=== PATIENT | female | born 1955 | race Caucasian/White ===

== ENCOUNTER 2021-03-06 20:36 | Inpatient (IN) ==
[2021-03-06] MEDS ORDERED: SODIUM CHLORIDE 0.9% 1,000 ML IV STA (20:57)
[2021-03-06] MEDS ORDERED: ONDANSETRON INJ 2 MG/ML 2 ML VIAL IV STA (20:57)
[2021-03-06] MEDS ORDERED: MoRPHine SULFATE 4 MG/ML 1 ML CARP\\VIAL IV STA ×2 (20:57→22:39)
--- NOTE | 2021-03-06 21:06 | Emergency Department Note ---
History of Present Illness General Chief complaint: Abdominal Pain Stated complaint: ABD PAIN Time Seen by Provider: 03/06/21 20:42 History of Present Illness Maximum Pain Intensity: 10 55-year-old female who presents to the emergency department with complaint of central abdominal pain since approximately 10:30 AM this morning. The patient reports that the pain is constant with occasional sharp jabs in the left side of her abdomen. She denies any pain radiating into the back or chest. She reports a prior history of small bowel obstruction requiring a small bowel resection. She has not had any issues since that time. She reports that this feels similar. She has not had any nausea or vomiting. Since her surgery, she has had loose stools. She denies any abhishek diarrhea, blood in her stools or recent constipation. She rates her discomfort a 10 out of 10. Home Medications Medication Instructions Recorded Confirmed Type Levothyroxine (Synthroid Unknown 50 mcg PO DAILY #0 04/21/11 History Dose) [id number] C- 4 tab PO QPM #0 08/03/16 History (GLUCOSAMINE CHONDROITIN) Amlodipine Besylate 5 mg PO BID 30 Days #60 tab 08/11/16 Rx Allergies Allergy/AdvReac Type Severity Reaction Status Date / Time amoxicillin Allergy Unknown hives Unverified 04/21/11 06:57 clarithromycin Allergy Unknown swelling Unverified 04/21/11 06:57 Past Med/Surg History Medical History Hypertension Hypothyroidism DARIN on CPAP SBO (small bowel obstruction) Surgical History H/O colonoscopy H/O tubal ligation History of carpal tunnel surgery History of resection of small bowel Social History Smoking Status: Never smoker marital status: Current Living Situation: Spouse current occupational status: employed Feels Safe at Home: Yes Review of Systems 10 system review was performed and was negative except for pertinent positives and negatives as indicated in history of present illness Physical Exam Vital Signs Vital Signs - 24 hr 03/06/21 20:37 03/06/21 21:00 Temperature 36.3 C L Temperature Source Temporal Artery Scan Pulse Rate 87 Pulse Rate [Apical] 67 Pulse Rhythm [Apical] Regular Pulse Strength [Apical] Normal Respiratory Rate 24 24 Respiratory Effort / Characteristics Non-Labored Spontaneous Non-Labored Spontaneous Respiratory Depth Normal Normal Blood Pressure 179/120 H Blood Pressure [Left Arm] 155/77 H Blood Pressure Mean 139 Blood Pressure Mean [Left Arm] 103 Pulse Oximetry 98 99 Oxygen Delivery Method Room Air Room Air Sepsis Recent Fever Within 48 Hours No Sepsis New/Unexplained Change in Mental Status N/A Sepsis Action Taken by Nursing No Action Required CONSTITUTIONAL: Morbidly obese female in notable distress. HEENT: Normocephalic, atraumatic. No scleral icterus or conjunctival injection/pallor. NECK: Full active range of motion without discomfort. LYMPHATICS: No cervical chain adenopathy. RESPIRATORY: Clear to auscultation bilaterally with no wheezing, crackles, rhonchi or stridor. CARDIOVASCULAR: Regular rate and rhythm with no murmurs, rubs or gallops. GASTROINTESTINAL: Bowel sounds minimal in all quadrants. Abdomen protuberance is noted without fluid wave or ballottement. The patient has generalized central abdominal tenderness to palpation. Negative McBurney's point tenderness. Negative CVA tenderness. No rigidity, guarding or rebound. MUSCULOSKELETAL: Full range of motion of all joints without discomfort. INTEGUMENTARY: No rash or other significant dermatologic conditions noted. HEMATOLOGIC: No ecchymosis or petechiae. PSYCHIATRIC: Positive affect. NEUROLOGIC: No focal neurologic deficits noted. Course Course Patient history and physical exam were performed. Nurses notes were reviewed. Vital signs were reviewed, showing an elevated blood pressure of 179/120. The patient reports that she was unable to take her blood pressure medicine today because of the pain. Review of prior medical records was also performed, showing a small bowel obstruction with small bowel resection [place] [address] Harris. Patient is also noted to have prior history of a kidney stone in 2010; the patient reports that this pain feels different. IV access was established, and labs were drawn. The patient was hydrated with a liter normal saline, and administered IV morphine and Zofran for pain. An ECG was performed and was normal. 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 Review of labs shows a leukocytosis with left shift and without bandemia. BUN is mildly elevated with a normal creatinine. LFTs, lipase and troponin are normal. Lactate is elevated at 2.8. CT with IV contrast of the abdomen and pelvis was concerning for a partial versus early small bowel obstruction. Findings were discussed with Dr. Schrader, ED attending physician, who recommended hospitalist consultation for admission. Case was also discussed with the patient regarding her CT findings, and agrees with admission. The case was also discussed with Dr. Buck, [facility] hospitalist, who also agrees with admission, and will be evaluating the patient. An order was placed for additi onal IV morphine because of patient discomfort. She denied any further nausea. An order was also placed for COVID-19 testing, and repeat lactate. An order was also placed for an NG tube insertion with low intermittent suction. Please see the hospitalist service notes for further treatment and final disposition. Administered Medications Discontinued Medications Sodium Chloride (Nss 1000ml) 1,000 mls @ 999 mls/hr IV .Q1H1M STA Stop: 03/06/21 21:57 Last Infusion: 03/06/21 22:16 Dose: 0 mls/hr Documented by: [id number] Admin: 03/06/21 21:15 Dose: 999 mls/hr Documented by: [id number] Ioversol (Optiray 300 100ml) 84 ml IV ONCE ONE Stop: 03/06/21 22:03 Last Admin: 03/06/21 22:02 Dose: 84 ml Documented by: [id number] Morphine Sulfate (Morphine Sulfate 4 Mg/Ml 1 Ml Carp\Vial) 4 mg IV NOW STA Stop: 03/06/21 20:58 Last Admin: 03/06/21 21:15 Dose: 4 mg Documented by: [id number] Ondansetron HCl (Ondansetron Inj 2 Mg/Ml 2 Ml Vial) 4 mg IV NOW STA Stop: 03/06/21 20:58 Last Admin: 03/06/21 21:15 Dose: 4 mg Documented by: [id number] Medical Decision Making Medical Records Attestation: I reviewed the patient's medical records. Home Medications Current Medication List: was personally reviewed by me Laboratory Data Attestation: I reviewed the patient's lab results. Result diagrams: 03/06/21 Unknown 03/06/21 Unknown Lab Results 03/06/21 03/06/21 03/06/21 Range/Units Unknown Unknown Unknown WBC 11.98 H (4.8-10.8) K/uL RBC 5.23 (4.2-5.4) M/uL Hgb 15.3 (12.0-16.0) g/dL Hct 46.0 (37-47) % MCV 88.0 (80-100) fL MCH 29.3 (25-34) pg MCHC 33.3 (32-36) g/dL RDW Std Deviation 43.4 (36.4-46.3) fL RDW Coeff of Chitra 13.4 (11.5-14.5) % Plt Count 218 (130-400) K/uL MPV 10.8 H (7.4-10.4) fL Immature Gran % (Auto) 0.2 % Neut % (Auto) 61.5 % Lymph % (Auto) 28.8 % [place] % (Auto) 7.1 % Eos % (Auto) 2.1 % Baso % (Auto) 0.3 % Neut # (Auto) 7.37 H (1.4-6.5) K/uL Lymph # (Auto) 3.45 H (1.2-3.4) K/uL [place] # (Auto) 0.85 H (0.11-0.59) K/uL Eos # (Auto) 0.25 (0-0.5) K/uL Baso # (Auto) 0.04 (0-0.2) K/uL Immature Gran # (Auto) 0.02 (0.00-0.02) K/uL PT Cancelled INR Cancelled APTT Cancelled PTT Ratio Cancelled Sodium 139 (136-145) mmol/L Potassium 3.5 (3.5-5.1) mmol/L Chloride 101 (98-107) mmol/L Carbon Dioxide 29 (21-32) mmol/L Anion Gap 9.0 (3-11) BUN 21 H (7-18) mg/dl Creatinine 0.93 (0.6-1.2) mg/dl Est Cr Clr Drug Dosing 66.2 ml/min Est GFR ( Amer) 75.8 ml/min Est GFR (Non-Af Amer) 65.4 ml/min BUN/Creatinine Ratio 22.0 H (10-20) Glucose 169 H (70-99) mg/dl Lactate (0.4-2.0) mmol/L Calcium 10.3 H (8.5-10.1) mg/dl Total Bilirubin 0.6 (0.2-1) mg/dl AST 33 (15-37) U/L ALT 70 (12-78) U/L Alkaline Phosphatase 106 (45-117) U/L Troponin I < 0.015 (0-0.045) ng/ml Total Protein 8.9 H (6.4-8.2) gm/dl Albumin 4.4 (3.4-5.0) gm/dl Globulin 4.5 H (2.5-4.0) gm/dl Albumin/Globulin Ratio 1.0 (0.9-2) Lipase 85 (73-393) U/L 03/06/21 Range/Units Unknown WBC (4.8-10.8) K/uL RBC (4.2-5.4) M/uL Hgb (12.0-16.0) g/dL Hct (37-47) % MCV (80-100) fL MCH (25-34) pg MCHC (32-36) g/dL RDW Std Deviation (36.4-46.3) fL RDW Coeff of Chitra (11.5-14.5) % Plt Count (130-400) K/uL MPV (7.4-10.4) fL Immature Gran % (Auto) % Neut % (Auto) % Lymph % (Auto) % [place] % (Auto) % Eos % (Auto) % Baso % (Auto) % Neut # (Auto) (1.4-6.5) K/uL Lymph # (Auto) (1.2-3.4) K/uL [place] # (Auto) (0.11-0.59) K/uL Eos # (Auto) (0-0.5) K/uL Baso # (Auto) (0-0.2) K/uL Immature Gran # (Auto) (0.00-0.02) K/uL PT INR APTT PTT Ratio Sodium (136-145) mmol/L Potassium (3.5-5.1) mmol/L Chloride (98-107) mmol/L Carbon Dioxide (21-32) mmol/L Anion Gap (3-11) BUN (7-18) mg/dl Creatinine (0.6-1.2) mg/dl Est Cr Clr Drug Dosing ml/min Est GFR ( Amer) ml/min Est GFR (Non-Af Amer) ml/min BUN/Creatinine Ratio (10-20) Glucose (70-99) mg/dl Lactate 2.8 H* (0.4-2.0) mmol/L Calcium (8.5-10.1) mg/dl Total Bilirubin (0.2-1) mg/dl AST (15-37) U/L ALT (12-78) U/L Alkaline Phosphatase (45-117) U/L Troponin I (0-0.045) ng/ml Total Protein (6.4-8.2) gm/dl Albumin (3.4-5.0) gm/dl Globulin (2.5-4.0) gm/dl Albumin/Globulin Ratio (0.9-2) Lipase (73-393) U/L Imaging Data Attestation: I personally reviewed and interpreted this imaging study as follows: My Impression: My interpretation of a CT with IV contrast of the abdomen and pelvis is concerning for a partial small bowel obstruction. No diverticulitis, appendicitis or abdominal free air noted. [employer] report was reviewed, and is provided in the following section for reader convenience. Local radiologist report is pending. Radiologist's Impression: CT ABDOMEN & PELVIS With Contrast: Mildly dilated loops of small bowel with air-fluid levels in the lower central abdomen. There is slight tapering to normal caliber distally without suggestion of high-grade stricture (series 2, image 64). This appearance may represent a partial or very early small bowel obstruction. Fat-containing ventral hernia. Fascial defect measures 3.8 cm in width. Stable left renal cyst. Additional bilateral subcentimeter hypodensities in the kidneys too small to characterize further but are statistically likely to also represent simple cysts. Comparison made with 08/05/2016 CT abdomen/pelvis Radiologist: Colin Lake MD ECG Data Attestation: I personally reviewed and interpreted this ECG as follows: Indication: + abdominal pain Rate (beats per minute): 67 Rhythm: + normal sinus ECG Intervals/blocks: + Normal QRS ECG [place]: + Normal ECG ST segments: + Normal ST segments Comparison ECG Date: from (08/05/2016) Change: the following changes noted (Improved T wave appearance in anterolateral leads) Blood Pressure Blood Pressure Findings: Elevated blood pressure MDM Narrative Cardiac monitoring: An order was placed for continuous cardiac monitoring. The monitor shows a rate of 67 bpm with normal sinus rhythm. 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 Patient presents to the emergency department with complaint of abdominal pain since early this morning. Fortunately patient has not had any significant nausea or vomiting. CT imaging today is concerning for early small bowel obstruction versus partial small bowel obstruction. Patient does have an elevated lactate, however I do not suspect infection. The patient is afebrile and has a mild leukocytosis. Additional laboratory studies are not suggestive of pancreatitis, cholecystitis or hepatitis. The patient was unable to provide a urine sample to rule out UTI, however this was felt to be less likely. Patient does have prior history of small bowel obstruction with surgical resection. Hopefully the patient's symptoms will improve with NG tube insertion and observation. Impression & Plan Partial small bowel obstruction, Hypertension, History of resection of small bowel Discharge Plan Visit Data Chief Complaint: Abdominal Pain Stated Complaint: ABD PAIN ED Provider: Buddy Schrader ED Midlevel Provider: [place] Discharge Problem: Partial small bowel obstruction, Hypertension, History of resection of small bowel Forms Stand Alone Forms: [facility] [place] [employer] Prescriptions Prescriptions: No Action Levothyroxine (Synthroid Unknown Dose) tablet 50 mcg PO DAILY Qty: 0 RF: 0 [id number] C- (GLUCOSAMINE CHONDROITIN) 1 TAB tablet 4 tab PO QPM Qty: 0 RF: 0 Amlodipine Besylate 5 MG tablet 5 mg PO BID 30 Days Qty: 60 RF: 1
[2021-03-06 21:07] LABS: Basophils # (auto) 0.04 K/uL (0-0.2); Basophils % (auto) 0.3 %; Eosinophils # (auto) 0.25 K/uL (0-0.5); Eosinophils % (auto) 2.1 %; Hemoglobin 15.3 g/dL (12.0-16.0); Immature Granulocytes # (auto) 0.02 K/uL (0.00-0.02); Immature Granulocytes % (auto) 0.2 %; Lymphocytes # (auto) 3.45 K/uL (1.2-3.4); Lymphocytes % (auto) 28.8 %; Mean Corpuscular Hemoglobin 29.3 pg (25-34); Mean Corpuscular Hgb Conc 33.3 g/dL (32-36); Mean Platelet Volume 10.8 fL (7.4-10.4); Monocytes # (auto) 0.85 K/uL (0.11-0.59); Monocytes % (auto) 7.1 %; Neutrophils # (auto) 7.37 K/uL (1.4-6.5); Neutrophils % (auto) 61.5 %; Platelet Count 218 K/uL (130-400); RDW Coefficient of Variation 13.4 % (11.5-14.5); RDW Standard Deviation 43.4 fL (36.4-46.3); Red Blood Count 5.23 M/uL (4.2-5.4); White Blood Count 11.98 K/uL (4.8-10.8)
[2021-03-06 21:23] LABS: Alanine Aminotransferase 70 U/L (12-78); Albumin Level 4.4 gm/dl (3.4-5.0); Aspartate Aminotransferase 33 U/L (15-37); Blood Urea Nitrogen 21 mg/dl (7-18); Calcium 10.3 mg/dl (8.5-10.1); Carbon Dioxide 29 mmol/L (21-32); Chloride 101 mmol/L (98-107); Creatinine Clr Calc Pharmacy 66.2 ml/min; Est GFR (African American) 75.8 ml/min; Est GFR (Non-African American) 65.4 ml/min; Glucose 169 mg/dl (70-99); Lipase 85 U/L (73-393); Potassium 3.5 mmol/L (3.5-5.1); Sodium 139 mmol/L (136-145)
[2021-03-06 21:28] LABS: Alkaline Phosphatase 106 U/L (45-117); Bilirubin,Total 0.6 mg/dl (0.2-1); Globulin 4.5 gm/dl (2.5-4.0); Total Protein 8.9 gm/dl (6.4-8.2); Troponin I < 0.015 ng/ml (0-0.045)
[2021-03-06] MEDS ORDERED: OPTIRAY 300 100mL IV ONE (22:02)
[2021-03-06] MEDS: MoRPHine SULFATE 4 MG/ML 1 ML CARP\\VIAL IV PRN (22:42)
[2021-03-07] MEDS: MoRPHine SULFATE 4 MG/ML 1 ML CARP\\VIAL IV PRN (00:31)
[2021-03-07] MEDS ORDERED: ONDANSETRON INJ 2 MG/ML 2 ML VIAL IV PRN (01:23)
[2021-03-07] MEDS ORDERED: GLUCOSE 10 TAB/TUBE PO PRN (01:45)
[2021-03-07] MEDS ORDERED: GLUCOSE 40% GEL 15 GM TUBE PO PRN (01:45)
[2021-03-07] MEDS ORDERED: DEXTROSE 50% 50 ML SYRINGE IV PRN (01:45)
[2021-03-07] MEDS ORDERED: CARBOHYDRATES FOR HYPOGLYCEMIA PO PRN (01:45)
[2021-03-07] MEDS ORDERED: GLUCAGON FOR INJ 1 MG VIAL IM PRN (01:45)
[2021-03-07] MEDS: SODIUM CHLORIDE 0.9% 1,000 ML IV SCH ×2 (01:57→08:36)
--- NOTE | 2021-03-07 01:58 | History and Physical Report ---
DATE OF ADMISSION: 03/07/2021 CHIEF COMPLAINT: Abdominal pain. HISTORY OF PRESENT ILLNESS: A 65-year-old male with past medical history significant for type 2 diabetes, hypothyroidism, mild obstructive sleep apnea, hypertension, benign neoplasm of colon, morbid obesity, primary osteoarthritis of both knees, mild depression, SEVERINO inhibitor intolerance, presents with abdominal pain. The patient says in the morning since 10.30 she has abdominal pain, severe pain. She had 3 bowel movements in the morning. Since then she is not moving any bowels. Not passing any flatus. No nausea, no vomiting, no cough, no fever, no chills, no chest pain, no headache, no blurred vision, no earache, no runny nose, no sore throat. Normal bladder movements. Otherwise, ambulates okay. Lives with her . She had a bowel obstruction in July 2016, she had small polyps resected because of bowel obstruction. ALLERGIES: SEVERINO INHIBITORS, AMOXICILLIN, ANGIOTENSIN RECEPTOR BLOCKERS, CLARITHROMYCIN. PAST MEDICAL HISTORY: As mentioned above. PAST SURGICAL HISTORY: Breast lesion, carpal tunnel surgery, colonoscopy, fibroid cyst in the breast, infected ovarian tube, tubal ligation. MEDICATIONS: The patient is on hydrochlorothiazide 25 mg p.o. daily, levothyroxine 75 mcg p.o. daily, metformin 1000 mg p.o. b.i.d., metoprolol succinate 25 mg p.o. q.p.m. FAMILY HISTORY: Significant for father had esophageal cancer, heart disorder, hypertension. Mother has thyroid disorder, hypertension. Sister has thyroid disorder. SOCIAL HISTORY: . No smoking, no alcohol, no drug use. REVIEW OF SYMPTOMS: As per HPI. Rest of review of systems negative. PHYSICAL EXAMINATION: GENERAL: The patient is of moderate build, not in acute distress. VITAL SIGNS: Temperature 36.3, pulse 67, respiratory rate 24, blood pressure 155/77, oxygen 99% on room air. HEENT: Pupils equal, round, reactive to light. NECK: No JVD. No neck masses. CARDIOVASCULAR: S1, S2 heard, regular rate and rhythm, no murmur, no gallop. RESPIRATORY SYSTEM: Normal AP diameter. No accessory muscle use. No wheezing, no crackles. ABDOMEN: Soft, bowel sounds very sluggish, diffuse abdominal tenderness. Mild guarding, no rigidity, no rebound tenderness. CENTRAL NERVOUS SYSTEM: Cranial nerves II-XII grossly intact. Nonfocal. EXTREMITIES: No edema, no erythema. LABORATORY DATA: WBC 11.9, hemoglobin 15.3, hematocrit 46, platelets 218. Sodium 139, potassium 3.5, chloride 101, bicarbonate 29, BUN 21, creatinine 0.9, serum glucose 169, lactate 2.8, calcium 10.3, total bilirubin 0.6, AST 33, ALT 70, alkaline phosphatase 106. Troponin I less than 0.015. SARS-CoV-2 PCR negative. IMAGING: CT of abdomen and pelvis with IV contrast, mildly dilated loops of small bowel with air fluid levels in the lower central abdomen. There is slight tapering to normal caliber distal without suggestion of high-grade stricture. This appeared to represent a partial or very early small bowel obstruction. EKG: Normal sinus rhythm 67. No acute ST changes seen. ASSESSMENT AND PLAN: A 65-year-old female who presents with abdominal pain, found to have small bowel obstruction. 1. Abdominal pain, recurrent small bowel obstruction, history of small bowel resection in July 2016 as per the patient. Currently no nausea, vomiting. We will continue with n.p.o., IV fluids, IV antiemetics, IV pain medications and consult surgery in a.m. 2. Mild elevation of lactic acid, but CAT scan with contrast not showing any high-grade obstruction. We will follow the repeat lactic acid.Normalized repeat lactic acid. 3. Diabetes. Hold metformin. Start insulin sliding scale. 4. Hypertension. Hold hydrochlorothiazide. Continue metoprolol succinate. We will monitor the blood pressure. 5. History of hypothyroidism, hold Synthroid for now. Restart when able to take p.o. 6. Deep venous thrombosis prophylaxis, sequential compression devices. DISPOSITION: Monitor in the medical floor. Expect to discharge home and follow with family doctor. Level 1 full code. MTDD
[2021-03-07] MEDS: HYDROmorphone INJ 0.5 MG/0.5 ML SYR IV PRN ×2 (02:04→05:18)
[2021-03-07] MEDS: INSULIN ASPART 100 UNITS/ML 3 ML PEN SC SCH ×4 (06:01→23:55)
[2021-03-07 06:02] LABS: Appearance Urine Clear (Clear); Bilirubin Urine Negative (Negative); Blood Urine Negative (Negative); Color Urine Yellow; Glucose Urine UA Negative (Negative); Ketones Urine Negative (Negative); Leukocyte Esterase Urine Negative (Negative); Nitrite Urine Negative (Negative); Protein Urine Negative (Negative); Specific Gravity Urine > 1.045 (1.000-1.030); Urobilinogen Urine Negative (Negative)
--- NOTE | 2021-03-07 07:54 | CT Scan Report ---
CT SCAN OF THE ABDOMEN AND PELVIS WITH IV CONTRAST CLINICAL HISTORY: Generalized abdominal pain. COMPARISON STUDY: Abdominal CT dated 08/05/2016. TECHNIQUE: Following the IV administration of 84 cc of Optiray 300, CT scan of the abdomen and pelvi s is performed from the lung bases to the proximal femora. Images are reviewed in the axial, sagittal , and coronal planes. IV contrast was administered without complication. A dose lowering technique wa s utilized adhering to the principles of ALARA. CT DOSE: 927.84 mGycm FINDINGS: Lung bases: The heart is normal in size and without pericardial effusion. The lung bases are clear no ting dependent atelectasis. There is a tiny hiatal hernia. Liver: The contrast-enhanced liver is normal in size and heterogeneous in attenuation. Nodularity of the surface contour suggests early change of cirrhosis. There is no intrahepatic biliary ductal dilat ation. The hepatic veins and portal veins are patent. Gallbladder: Unremarkable. Spleen: Normal in size and attenuation. Pancreas: Unremarkable. Adrenal glands: Unremarkable. Kidneys: The contrast enhanced kidneys are normal in size and without hydronephrosis. The kidneys enh ance symmetrically. A left renal cyst measures 1.9 cm. Additional subcentimeter cortical hypodensitie s also likely represent cysts but are too small for definitive characterization. The Abdominal vasculature: The abdominal aorta is normal in course and caliber noting mild to moderate at herosclerotic calcification. Bowel: A small bowel anastomosis is seen in the right lower quadrant. The small bowel loops in the pe lvis are distended and fluid-filled measuring up to 3.4 cm in diameter. The distal small bowel and co rocio are decompressed. A focal transition point is seen in the right ventral pelvis on image #311. A s econd proximal transition point is suggested on image #295 in the upper pelvis this is consistent wit h a small bowel obstruction, and the finding of 2 transition points raises concern for a closed loop type obstruction. Trace interloop fluid is noted. There is no pneumatosis intestinalis or portal veno us gas. No focally thick walled bowel loops are identified The appendix is well-visualized and kari l. Peritoneum: There is no intraperitoneal free air or abdominal ascites. There are at least 2 fat-conta ining supraumbilical hernias seen on images #236 and #264. Lymphadenopathy: There are prominent upper abdominal lymph nodes. A portacaval node measures up to 1. 3 cm in short axis. Nodes in the angelita hepatis measure up to 1.2 cm in short axis. Pelvic viscera: The bladder is normal as visualized. Uterine fibroids are suggested. No adnexal lesio n is seen. Skeletal structures: The skeletal structures are osteopenic. There is mild lumbosacral spondylosis. N o lytic or blastic lesions are seen. IMPRESSION: 1. Findings are consistent with a small bowel obstruction. Although this could be related to adhesion s, 2 discrete transition points are suggested and a closed loop/internal hernia type obstruction is n ot excluded. Surgical assessment is advised. 2. No focally thick walled bowel loops are identified. There is no pneumatosis intestinalis, portal v enous gas, or intraperitoneal free air. 3. The appearance of the liver suggests early change of cirrhosis. 4. Additional findings as above. ACT 112: Negative or not required by law. Electronically signed by: Hilario Wang M.D. 03/07/2021 7:53 AM
--- NOTE | 2021-03-07 08:36 | Surgery Consultation ---
Date of Consultation March 07, 2021 Assessment & Plan (1) SBO (small bowel obstruction): This is a 65y F with a PMH of HTN, DARIN, DM2, who presented to the [facility] ED on 03/06/21 with complaints of abdominal pain in the upper/mid abdomen. A CT a/p was performed revealing findings consistent with an SBO. Our radiologist re-read CT at 2 discrete transition points are noted and cannot rule out closed-loop obstruction/internal hernia. Patient's VSS. She feels much better today symptomatically with NGT in place (minimal NGT output noted). Her VSS. Lactate initially 2.8, down to 1.7 today. PSH includes a small bowel resection in 2016 for SBO and a tubal ligation. She apparently has been doing well since her bowel resection. Would agree with a trial of conservative management, keep NPO with IVF and NGT in place for decompression. We will order a KUB tomorrow AM to reassess. We will continue to follow. No plans for surgical intervention at this time. as above. looks/feels better. lactic acid decreased...doubt true closed loop obstruction or ischemia. NGT with minimal output...will monitor for now...if symptoms worsen will have a low threshold for surgical exploration. History of Present Illness Attending Physician: Juan Jose Bowman MD History of Present Illness This is a 65y F with a PMH of HTN, DARIN, DM2, who presented to the [facility] ED on 03/06/21 with complaints of abdominal pain. Patient reports her abdominal pain started yesterday around 10:30 AM after eating some blackberries, mostly located in the upper/mid abdomen. She did have 3 BM's in the AM, but none since. She denies any nausea/vomiting. Due to her symptoms she came to the ER for further evaluation. In the ER a CT a/p was performed that showed findings concerning for a small bowel obstruction. She does have a history of a diagnostic laparoscopy with hand assisted small bowel resection and lysis of adhesions for small bowel obstruction in [address] Harris and history of a tubal ligation. Allergies Allergy/AdvReac Type Severity Reaction Status Date / Time amoxicillin Allergy Unknown hives Unverified 03/06/21 23:03 clarithromycin Allergy Unknown swelling Unverified 03/06/21 23:03 Home Medications Medication Instructions Recorded Confirmed Type hydrochlorothiazide 25 mg PO DAILY 03/06/21 03/06/21 History levothyroxine [Euthyrox] 75 mcg PO DAILY 03/06/21 03/06/21 History metformin 1,000 mg PO BID 03/06/21 03/06/21 History metoprolol succinate 25 mg PO QPM 03/06/21 03/06/21 History Patient History Medical History Hypertension Hypothyroidism DARIN on CPAP SBO (small bowel obstruction) Surgical History H/O colonoscopy H/O tubal ligation History of carpal tunnel surgery History of resection of small bowel Social History Smoking Status: Never smoker Hx Alcohol Use: No Hx Substance Use: No Preferred Language: Lithuanian Communication Ability: Effective Public Transit Specialist Required: No Beliefs That Will Affect Care: None marital status: Current Living Situation: Spouse current occupational status: employed Other Information That Helps Us Care for You: No Feels Safe at Home: Yes Safety Concerns: Feels Safe At This Time Assistive Devices: Glasses Review of Systems Constitutional: no fever and no chills Respiratory: no dyspnea Gastrointestinal: + abdominal pain; no nausea and no vomiting 3 BMs yesterday AM, no BM or flatus since Physical Exam Physical Exam: awake/alert Constitutional: well developed and well nourished; no acute distress Gastrointestinal (Abdomen): Inspection/Auscultation: + abdominal surgical scar (upper midline scar present, well healed) Percussion/Palpation: + abdomen tender (some ttp in central abd.) and abdomen soft Results & Data ([facility]) Vital Signs (Past 12 Hours) Vital Signs Temp Pulse Pulse Pulse Resp BP BP 03/07/21 07:35 36.6 C 88 12 138/72 03/07/21 01:28 36.7 C 74 16 136/80 03/06/21 23:00 72 18 141/67 H 03/06/21 21:00 67 24 155/77 H 03/06/21 20:37 36.3 C L 87 24 179/120 H Pulse Ox 03/07/21 07:35 91 03/07/21 01:28 94 03/06/21 23:00 96 03/06/21 21:00 99 03/06/21 20:[address] SCAN OF THE ABDOMEN AND PELVIS WITH IV CONTRAST CLINICAL HISTORY: Generalized abdominal pain. COMPARISON STUDY: Abdominal CT dated 08/05/2016. TECHNIQUE: Following the IV administration of 84 cc of Optiray 300, CT scan of the abdomen and pelvis is performed from the lung bases to the proximal femora. Images are reviewed in the axial, sagittal, and coronal planes. IV contrast was administered without complication. A dose lowering technique was utilized adhering to the principles of ALARA. CT DOSE: 927.84 mGycm FINDINGS: Lung bases: The heart is normal in size and without pericardial effusion. The lung bases are clear noting dependent atelectasis. There is a tiny hiatal hernia. Liver: The contrast-enhanced liver is normal in size and heterogeneous in attenuation. Nodularity of the surface contour suggests early change of cirrhosis. There is no intrahepatic biliary ductal dilatation. The hepatic veins and portal veins are patent. Gallbladder: Unremarkable. Spleen: Normal in size and attenuation. Pancreas: Unremarkable. Adrenal glands: Unremarkable. Kidneys: The contrast enhanced kidneys are normal in size and without hydronephrosis. The kidneys enhance symmetrically. A left renal cyst measures 1.9 cm. Additional subcentimeter cortical hypodensities also likely represent cysts but are too small for definitive characterization. The Abdominal vasculature: The abdominal aorta is normal in course and caliber noting mild to moderate atherosclerotic calcification. Bowel: A small bowel anastomosis is seen in the right lower quadrant. The small bowel loops in the pelvis are distended and fluid-filled measuring up to 3.4 cm in diameter. The distal small bowel and colon are decompressed. A focal transition point is seen in the right ventral pelvis on image #311. A second proximal transition point is suggested on image #295 in the upper pelvis this is consistent with a small bowel obstruction, and the finding of 2 transition points raises concern for a closed loop type obstruction. Trace interloop fluid is noted. There is no pneumatosis intestinalis or portal venous gas. No focally thick walled bowel loops are identified The appendix is well-visualized and normal. Peritoneum: There is no intraperitoneal free air or abdominal ascites. There are at least 2 fat-containing supraumbilical hernias seen on images #236 and #264. Lymphadenopathy: There are prominent upper abdominal lymph nodes. A portacaval node measures up to 1.3 cm in short axis. Nodes in the angelita hepatis measure up to 1.2 cm in short axis. Pelvic viscera: The bladder is normal as visualized. Uterine fibroids are suggested. No adnexal lesion is seen. Skeletal structures: The skeletal structures are osteopenic. There is mild lumbosacral spondylosis. No lytic or blastic lesions are seen. IMPRESSION: 1. Findings are consistent with a small bowel obstruction. Although this could be related to adhesions, 2 discrete transition points are suggested and a closed loop/internal hernia type obstruction is not excluded. Surgical assessment is advised. 2. No focally thick walled bowel loops are identified. There is no pneumatosis intestinalis, portal venous gas, or intraperitoneal free air. 3. The appearance of the liver suggests early change of cirrhosis. 4. Additional findings as above. ACT 112: Negative or not required by law. Electronically signed by: Hilario Wang M.D. 03/07/2021 7:53 AM PG Care Time/CCT Total # of Minutes Spent Total Time Spent with Patient: Total time spent is greater than 50% in coordination of care (as documented) at patient's floor/unit and/or counseling patient: Coding Level of Care Code 18355 Inpt Consult Level 4 Diagnoses SBO (small bowel obstruction) K56.609
--- NOTE | 2021-03-07 09:13 | XRay Report ---
KUB CLINICAL HISTORY: Small bowel obstruction. COMPARISON STUDY: CT of the abdomen and pelvis March 06, 2021. FINDINGS: Tip of nasogastric tube is within the gastric fundus. Exam is compromised by artifact. Ther e is suspected mild persistent small bowel dilatation. Sensitivity for detection of free air is dimin ished on this supine exam but there is no evidence for free air. Right lower quadrant surgical staple line is noted. IMPRESSION: Exam compromised by artifact but suspected mild persistent small bowel dilatation. ACT 112: Negative or not required by law. Electronically signed by: Percy Raya M.D. 03/07/2021 9:11 AM
--- NOTE | 2021-03-07 11:57 | Hospitalist Progress Note ---
Date of Service March 07, 2021 Assessment & Plan (1) Partial small bowel obstruction: Presented with abdominal pain and distention Noted to have a small bowel obstruction on CAT scan with history of SBO before and intestinal surgery Has been n.p.o. and symptomatic care NG tube suction Appreciate surgery input and recommendation KUB did not show any improvement We will continue current management We will check electrolytes and replace as needed (2) History of resection of small bowel: History of small bowel obstruction and resection of small polyp from the intestine (3) Hypertension: Seems to be controlled (4) DARIN on CPAP: Advised to continue her own CPAP in the hospital (5) Hypothyroidism: Continue supplement Admission and Anticipated Discharge Date Admission Date: March 07, 2021 Subjective 03/07/2021 Patient was seen and examined in medical floor She was admitted early this morning with abdominal pain and noted to have small bowel obstruction with history of prior SBO and surgery in the abdomen Still has abdominal distention but does not have any nausea or vomiting Bowel has not moved but is passing flatus Review of Systems Review of Systems: All systems reviewed and are unremarkable except as noted below Gastrointestinal: + abdominal pain, + bloating and + nausea; no vomiting Neurologic: + generalized weakness Physical Exam Physical Exam: Lying in bed with abdominal discomfort and discomfort due to NG tube in place Constitutional: well developed, well nourished, + ill appearing and + obese Eyes: PERRL, conjunctivae normal, anicteric sclerae ENMT: external ear and nose normal, oropharynx normal Neck: trachea midline, no thyromegaly Respiratory: no respiratory distress Auscultation: lungs clear to auscultation bilaterally Cardiovascular: Rate/Rhythm: regular rate and regular rhythm Heart Sounds: no murmur Extremities: no edema Gastrointestinal (Abdomen): Inspection/Auscultation: + abdomen distended; + abnormal bowel sounds (Decreased bowel sound) Percussion/Palpation: + abdomen tender (Mildly tender all over without guarding and/or rigidity) and abdomen soft Musculoskeletal: No acute arthritis in any joint Neurologic: Alert, awake and oriented x3. No focal sensory and motor deficit appreciated Psychiatric: A+Ox3, euthymic affect Results & Data Results & Data ([facility]) Vital Signs (Past 12 Hours) Vital Signs Temp Pulse Pulse Resp BP Pulse Ox 03/07/21 11:05 36.6 C 58 L 13 138/82 91 03/07/21 07:35 36.6 C 88 12 138/72 91 03/07/21 01:28 36.7 C 74 16 136/80 94 Laboratory Results Short CBC 03/06/21 Range/Units Unknown WBC 11.98 H (4.8-10.8) K/uL Hgb 15.3 (12.0-16.0) g/dL Hct 46.0 (37-47) % Plt Count 218 (130-400) K/uL BMP 03/06/21 Unknown Sodium 139 Potassium 3.5 Chloride 101 Carbon Dioxide 29 BUN 21 H Creatinine 0.93 Glucose 169 H Calcium 10.3 H Cardiac Enzymes 03/06/21 Range/Units Unknown Troponin I < 0.015 (0-0.045) ng/ml Liver Function 03/06/21 Range/Units Unknown Total Bilirubin 0.6 (0.2-1) mg/dl AST 33 (15-37) U/L ALT 70 (12-78) U/L Alkaline Phosphatase 106 (45-117) U/L Albumin 4.4 (3.4-5.0) gm/dl Urine 03/07/21 Range/Units 05:27 Urine Color Yellow Urine Appearance Clear (Clear) Urine pH 5.0 (4.5-7.5) Ur Specific [place] > 1.045 H (1.000-1.030) Urine Protein Negative (Negative) Urine Glucose (UA) Negative (Negative)
[2021-03-07] MEDS: NSS + 20MEQ KCL 20 MEQ/1,000 ML BAG IV SCH ×2 (12:23→19:42)
[2021-03-07 13:35] LABS: Magnesium 1.8 mg/dl (1.8-2.4); Phosphorus 3.5 mg/dl (2.5-4.9)
--- NOTE | 2021-03-07 17:55 | Electrocardiogram Report ---
Test Reason : Blood Pressure : / mmHG Vent. Rate : 067 BPM Atrial Rate : 067 BPM P-R Int : 138 ms QRS Dur : 096 ms QT Int : 420 ms P-R-T Axes : 036 -27 013 degrees QTc Int : 443 ms Normal sinus rhythm Poor R wave progression, consider anterior [place] vs. lead placement vs. LVH When compared with ECG of 05-AUG-2016 11:56, Nonspecific T wave abnormality, improved in Anterolateral leads Confirmed by Dashawn Jewell ([id number]) on 03/07/2021 5:55:09 PM Referred By: REFERRED SELF Confirmed By:Gurdeep Jewell
[2021-03-07] MEDS: METOPROLOL SUCC 25MG EXT REL TAB PO SCH (20:43)
[2021-03-07] MEDS ORDERED: CHLORASEPTIC 1.4% SOLN 180 ML BTL MT PRN (21:06)
[2021-03-07] MEDS ORDERED: COUGH DROP (SUGAR FREE) LOZ 24 LOZ/1 BOX BUCCAL ONE (23:33)
[2021-03-08] MEDS: NSS + 20MEQ KCL 20 MEQ/1,000 ML BAG IV SCH ×3 (03:23→19:36)
[2021-03-08] MEDS: INSULIN ASPART 100 UNITS/ML 3 ML PEN SC SCH ×3 (05:55→18:04)
[2021-03-08 07:07] LABS: Basophils # (auto) 0.04 K/uL (0-0.2); Basophils % (auto) 0.4 %; Eosinophils # (auto) 0.28 K/uL (0-0.5); Hematocrit (blood only) 40.2 % (37-47); Hemoglobin 13.3 g/dL (12.0-16.0); Immature Granulocytes # (auto) 0.02 K/uL (0.00-0.02); Immature Granulocytes % (auto) 0.2 %; Lymphocytes # (auto) 2.59 K/uL (1.2-3.4); Lymphocytes % (auto) 27.6 %; Mean Corpuscular Hemoglobin 28.7 pg (25-34); Mean Corpuscular Hgb Conc 33.1 g/dL (32-36); Mean Corpuscular Volume 86.8 fL (80-100); Mean Platelet Volume 10.4 fL (7.4-10.4); Monocytes % (auto) 7.5 %; Neutrophils # (auto) 5.74 K/uL (1.4-6.5); Neutrophils % (auto) 61.3 %; Platelet Count 142 K/uL (130-400); RDW Coefficient of Variation 13.4 % (11.5-14.5); RDW Standard Deviation 42.5 fL (36.4-46.3); Red Blood Count 4.63 M/uL (4.2-5.4); White Blood Count 9.37 K/uL (4.8-10.8)
[2021-03-08 07:27] LABS: BUN Creatinine Ratio 14.4 (10-20); Calcium 9.1 mg/dl (8.5-10.1); Creatinine Clr Calc Pharmacy 80.1 ml/min; Est GFR (African American) 95.2 ml/min; Est GFR (Non-African American) 82.2 ml/min; Potassium 4.7 mmol/L (3.5-5.1)
--- NOTE | 2021-03-08 08:48 | Surgery Progress Note ---
Date of Service March 08, 2021 Assessment & Plan (1) SBO (small bowel obstruction): Patient feeling more abdominal gas/bloating. She is starting to pass some flatus and feeling better. No BM yet VSS, WBC 9 NGT 1.4L out Plan to keep NPO with IVF and NGT for today Will check KUB, if worsening may consider a SBFT today vs tomorrow was having some increased distension/cramping earlier...passed some flatus today and now feeling better. KUB looks improved. b/c of high output, will keep ngt for another day...recheck KUB tomorrow, if still looks good will try clamping trial tomorrow. Admission and Anticipated Discharge Date Admission Date: March 07, 2021 Subjective Patient feeling more gas & rumblings today. She is starting to pass more gas, no BM yet. No nausea/vomiting. Physical Exam Physical Exam: awake/alert Constitutional: no acute distress Respiratory: normal respiratory effort Gastrointestinal (Abdomen): Inspection/Auscultation: + abdomen distended Percussion/Palpation: abdomen soft Results & Data ([facility]) Vital Signs (Past 12 Hours) Vital Signs Temp Pulse Resp BP Pulse Ox 03/08/21 07:12 36.8 C 69 16 161/90 H 94 03/07/21 23:15 36.8 C 74 18 166/96 H 94 PG Care Time/CCT Total # of Minutes Spent Total Time Spent with Patient: Total time spent is greater than 50% in coordination of care (as documented) at patient's floor/unit and/or counseling patient: Coding Level of Care Code 99834 Subseq Hosp Care Lvl 3 Diagnoses SBO (small bowel obstruction) K56.609
[2021-03-08] MEDS: hydrALAZINE HCL 20 MG/ML VIAL IV PRN ×2 (08:52→18:59)
--- NOTE | 2021-03-08 08:59 | XRay Report ---
KUB HISTORY: Acute generalized abdominal pain eval for SBO COMPARISON: KUB 03/07/2021, CT abdomen pelvis 03/06/2021 FINDINGS: An enteric tube distal tip projects of the abdominal left upper quadrant terminating in the expected location of the mid stomach. Nonobstructive bowel gas pattern. No pneumoperitoneum. Surgica l suture material projects over the abdominal right lower quadrant. Mild to moderate fecal retention. No urolith identified. No acute fracture. Degenerative changes of the spine, pelvis and hips. Right hemidiaphragmatic elevation. IMPRESSION: 1. Distal tip of enteric tube projects over the mid stomach. 2. Nonobstructive bowel gas pattern. ACT 112: Negative or not required by law. The above report was generated using voice recognition software. It may contain grammatical, syntax o r spelling errors. Electronically signed by: Rey Hayes M.D. 03/08/2021 8:58 AM
[2021-03-08] MEDS: ACETAMINOPHEN 325 MG TAB PO PRN (20:51)
[2021-03-08] MEDS: METOPROLOL SUCC 25MG EXT REL TAB PO SCH (20:52)
[2021-03-08] MEDS: HEPARIN SOD 5,000 UNIT/0.5 ML VIAL SQ SCH (20:57)
[2021-03-08] MEDS ORDERED: traMADol HCL 50 MG TABLET PO STA (23:08)
[2021-03-08] MEDS ORDERED: traMADol HCL 50 MG TABLET ONE (23:16)
[2021-03-09] MEDS: INSULIN ASPART 100 UNITS/ML 3 ML PEN SC SCH ×5 (00:18→21:13)
[2021-03-09] MEDS ORDERED: hydroCHLOROthiazide 25 MG TAB PO STA (00:37)
[2021-03-09] MEDS ORDERED: ZOLPIDEM TARTRATE 5 MG TAB PO STA (01:41)
[2021-03-09] MEDS ORDERED: ZOLPIDEM TARTRATE 5 MG TAB ONE (01:47)
[2021-03-09] MEDS: FAMOTIDINE 20 MG in SYRINGE 3 ML IV SCH ×3 (02:20→20:21)
[2021-03-09] MEDS: NSS + 20MEQ KCL 20 MEQ/1,000 ML BAG IV SCH ×3 (02:23→20:22)
[2021-03-09] MEDS: hydroCHLOROthiazide 25 MG TAB PO SCH (08:01)
[2021-03-09] MEDS: HEPARIN SOD 5,000 UNIT/0.5 ML VIAL SQ SCH ×2 (08:01→20:22)
--- NOTE | 2021-03-09 08:40 | XRay Report ---
KUB HISTORY: Acute generalized abdominal pain with reported small bowel obstruction eval bowel/gas patte rn for SBO COMPARISON: KUB 03/08/2021, CT 03/06/2021 FINDINGS: Interval removal of the enteric tube. Mildly dilated loops of small bowel are noted within the lower abdomen measuring up to 4.2 cm. No renal calculi. No ureteral calculi. No pneumoperitoneum or pneumatosis. No fracture. IMPRESSION: 1. Interval removal of the enteric tube. 2. Mildly dilated loops of small bowel within the lower abdomen may reflect a residual small bowel ob struction. Continued follow-up recommended. ACT 112: Negative or not required by law. The above report was generated using voice recognition software. It may contain grammatical, syntax o r spelling errors. Electronically signed by: Rey Hayes M.D. 03/09/2021 8:39 AM
--- NOTE | 2021-03-09 08:50 | Surgery Progress Note ---
Date of Service March 09, 2021 Assessment & Plan (1) SBO (small bowel obstruction): Patient feeling some improvement in symptoms. Passing more flatus this AM KUB yesterday showed a non obstructive bowel gas pattern. Today it shows some mildly dilated loops of small bowel in the lower mid abdomen...spoke with RN who said tube did not put out much overnight We can trial removing NGT today and starting some clear liquids this AM Continue ambulation as tolerates as above. per RN only scant gastric tube output overnight. +large amounts of flatus. no pain or nausea. wants NG tube out. will d/c ngt and start clears. she realizes if she fails this test ngt will need replaced. Admission and Anticipated Discharge Date Admission Date: March 07, 2021 Subjective Patient seen, says she is feeling well. Passing a lot more gas this AM, no BM yet. Denies abdominal pain or nausea. Says her biggest complaint is discomfort from the NGT. Physical Exam Physical Exam: awake/alert Constitutional: no acute distress Gastrointestinal (Abdomen): Inspection/Auscultation: + abdomen distended (mild) Percussion/Palpation: abdomen soft; abdomen nontender Results & Data ([facility]) Vital Signs (Past 12 Hours) Vital Signs Temp Pulse Pulse Resp BP Pulse Ox 03/09/21 08:00 185/89 H 03/09/21 07:39 36.8 C 85 16 97 03/08/21 22:52 36.5 C 77 18 165/95 H 96 03/08/21 20:47 73 174/74 H PG Care Time/CCT Total # of Minutes Spent Total Time Spent with Patient: Total time spent is greater than 50% in coordination of care (as documented) at patient's floor/unit and/or counseling patient: Coding Level of Care Code 84597 Subseq Hosp Care Lvl 3 Diagnoses SBO (small bowel obstruction) K56.609
[2021-03-09] MEDS ORDERED: Nursing to Pharmacy Communication SCH (09:30)
[2021-03-09] MEDS ORDERED: hydrALAZINE HCL 20 MG/ML VIAL IV PRN (12:28)
[2021-03-09] MEDS ORDERED: amLODIPine BESYLATE 5 MG TAB PO ONE (12:28)
--- NOTE | 2021-03-09 16:35 | Hospitalist Progress Note ---
Date of Service March 09, 2021 Assessment & Plan (1) Partial small bowel obstruction: Small bowel obstruction -CT ABD:Findings are consistent with a small bowel obstruction. Although this could be related to adhesions, 2 discrete transition points are suggested and a closed loop/internal hernia type obstruction is not excluded. Surgical assessment is advised. No focally thick walled bowel loops are identified. There is no pneumatosis intestinalis, portal venous gas, or intraperitoneal free air. The appearance of the liver suggests early change of cirrhosis. -NG tube discontinued -Continue IV fluids -Appreciate Surgery Input -Clear liquid diet (2) History of resection of small bowel: H/O Small bowel obstruction S/P Resection of small polyp from the intestine (3) Hypertension: On Metoprolol, HCTZ Patient prefers to stay on current regimen We will add amlodipine for the time being to control her blood pressure Monitor (4) DARIN on CPAP: CPAP HS (5) Hypothyroidism: Continue Levothyroxine DVT Px: Heparin SQ Code Status Full Code Admission and Anticipated Discharge Date Admission Date: March 07, 2021 Subjective Patient is seen and examined at bedside States having mild abdominal discomfort Tolerating diet Denies chest pain, dyspnea, dizziness, nausea KUB today showed findings suggestive of residual SBO Offers no other complaints Review of Systems Review of Systems: All systems reviewed & are unremarkable except as noted in HPI & below Physical Exam Physical Exam: Physical Exam: Vitals signs as noted above General Appearance:Obese, no apparent distress Head: normocephalic, Atraumatic Eyes: normal inspection, EOMI Neck: supple, Trachea midline Respiratory/Chest: Normal breath sounds, CTA Cardiovascular: S1, S2, No murmur Abdomen/GI:Soft, Non tender, decreased Bowel sounds Extremities/Musculoskeletal:normal inspection, no edema Neurologic/Psych:AAOX3, grossly no focal neurological deficits Skin: normal color, warm Results & Data Results & Data ([facility]) Vital Signs (Past 12 Hours) Vital Signs Temp Pulse Resp BP Pulse Ox 03/09/21 15:51 36.6 C 90 16 162/72 H 96 03/09/21 12:59 94 H 154/79 H 03/09/21 08:00 185/89 H 03/09/21 07:39 36.8 C 85 16 97
[2021-03-09] MEDS: METOPROLOL SUCC 25MG EXT REL TAB PO SCH (20:21)
[2021-03-10] MEDS: ACETAMINOPHEN 325 MG TAB PO PRN (00:48)
[2021-03-10] MEDS: LEVOTHYROXINE SODIUM 75 MCG TABLET PO SCH (05:51)
[2021-03-10 06:34] LABS: Hematocrit (blood only) 39.6 % (37-47); Hemoglobin 13.4 g/dL (12.0-16.0); Mean Corpuscular Hemoglobin 28.8 pg (25-34); Mean Corpuscular Hgb Conc 33.8 g/dL (32-36); Mean Platelet Volume 10.4 fL (7.4-10.4); Platelet Count 180 K/uL (130-400); RDW Coefficient of Variation 13.4 % (11.5-14.5); RDW Standard Deviation 41.2 fL (36.4-46.3); Red Blood Count 4.66 M/uL (4.2-5.4); White Blood Count 10.37 K/uL (4.8-10.8)
[2021-03-10 07:22] LABS: BUN Creatinine Ratio 10.9 (10-20); Calcium 9.1 mg/dl (8.5-10.1); Creatinine Clr Calc Pharmacy 77.1 ml/min; Est GFR (African American) 90.9 ml/min; Est GFR (Non-African American) 78.5 ml/min; Magnesium 1.6 mg/dl (1.8-2.4); Potassium 3.7 mmol/L (3.5-5.1)
[2021-03-10] MEDS: INSULIN ASPART 100 UNITS/ML 3 ML PEN SC SCH ×4 (08:22→21:50)
[2021-03-10] MEDS: amLODIPine BESYLATE 5 MG TAB PO SCH (08:24)
[2021-03-10] MEDS: hydroCHLOROthiazide 25 MG TAB PO SCH (08:24)
[2021-03-10] MEDS: HEPARIN SOD 5,000 UNIT/0.5 ML VIAL SQ SCH ×2 (08:28→21:19)
[2021-03-10] MEDS: FAMOTIDINE 20 MG in SYRINGE 3 ML IV SCH (09:06)
--- NOTE | 2021-03-10 09:39 | Surgery Progress Note ---
Date of Service March 10, 2021 Assessment & Plan (1) Partial small bowel obstruction: clinically resolving.... will advance diet...if she tolerates diet can consider d/c later today or tomorrow. Admission and Anticipated Discharge Date Admission Date: March 07, 2021 Subjective feeling well today. +large bm. no nauea. no pain. nolberto liquids/would like more to eat Physical Exam Constitutional: WD/WN, vitals as above no acute distress and not ill appearing Eyes: PERRL, conjunctivae normal, anicteric sclerae EOM intact bilaterally ENMT: external ear and nose normal, oropharynx normal Ears: no hearing impairment Neck: trachea midline, no thyromegaly Respiratory: normal respiratory effort; no respiratory distress and does not use accessory muscles Cardiovascular: Rate/Rhythm: regular rate and regular rhythm Gastrointestinal (Abdomen): soft. less distended. nt. Skin: no rashes, warm and dry Psychiatric: Orientation: alert, oriented x 3 and cooperative Results & Data ([facility]) Vital Signs (Past 12 Hours) Vital Signs Temp Pulse Resp BP BP Pulse Ox 03/10/21 07:35 36.7 C 60 16 168/96 H 97 03/09/21 22:49 36.7 C 67 14 137/69 96 PG Care Time/CCT Total # of Minutes Spent Total Time Spent with Patient: Total time spent is greater than 50% in coordination of care (as documented) at patient's floor/unit and/or counseling patient: Coding Level of Care Code 91989 Subseq Hosp Care Lvl 2 Diagnoses Partial small bowel obstruction K56.600
[2021-03-10] MEDS: NSS + 20MEQ KCL 20 MEQ/1,000 ML BAG IV SCH (09:53)
[2021-03-10] MEDS ORDERED: FAMOTIDINE 20 MG in SYRINGE 3 ML IV PRN (10:00)
--- NOTE | 2021-03-10 10:31 | Hospitalist Progress Note ---
Date of Service March 10, 2021 Assessment & Plan (1) Partial small bowel obstruction: Small bowel obstruction -CT ABD:Findings are consistent with a small bowel obstruction. Although this could be related to adhesions, 2 discrete transition points are suggested and a closed loop/internal hernia type obstruction is not excluded. Surgical assessment is advised. No focally thick walled bowel loops are identified. There is no pneumatosis intestinalis, portal venous gas, or intraperitoneal free air. The appearance of the liver suggests early change of cirrhosis -KUB yesterday with mildly dilated loops of small bowel within the lower abdomen may reflect a residual small bowel obstruction -Continue IV fluids -Surgery advanced diet to regular DM II lunch (2) Hypomagnesemia: Mg 1.6 today Replacing Recheck in AM (3) History of resection of small bowel: H/O Small bowel obstruction S/P Resection of small polyp from the intestine (4) Hypertension: On Metoprolol, HCTZ Patient prefers to stay on current regimen Added amlodipine for the time being to control her blood pressure Monitor (5) DARIN on CPAP: CPAP HS (6) Hypothyroidism: Continue Levothyroxine DVT Px: Heparin SQ Code Status Full Code Patient seen in collaboration with Dr. Pate. Please see addendum. Admission and Anticipated Discharge Date Admission Date: March 07, 2021 Supervising Physician Co-Signing Physician Notes Patient is seen and examined at bedside. Had bowel movement yesterday. Tolerating diet. Offers no other complaints. Patient is obese, no apparent distress, normocephalic atraumatic, lungs are clear to auscultation, normal breath sounds, S1-S2, no murmur, no pedal edema, abdomen soft, nontender alert, awake, oriented, grossly no focal deficits. Advance diet as tolerated. Continue gentle IV fluids. Replace magnesium for hypomagnesemia. Surgery following. I personally reviewed the record. Patient is interviewed and examined at bedside. Patient's care is coordinated with Inna Rice PA-C. Please refer to the documentation above for details of patient's presentation and for discussion of other issues. Subjective Patient seen and examined in 320 bed 1. Sitting in bedside chair without issue. Has had 2 large liquidy bowel movements this morning greenish-brown in color. Denies any blood. No nausea or vomiting. Tolerating liquid diet without issue and would like to advance to regular diet, which was placed by surgical service this morning. Denies any fever, chills, headache, chest pain, shortness of breath, dysuria or constipation. Review of Systems Review of Systems: At least ten systems reviewed and negative except as noted in the HPI. Physical Exam Physical Exam: General Appearance: WD/WN, vitals as above, NAD, sitting in bedside chair, pleasant, conversing easily Head: normocephalic, atraumatic Eyes: normal inspection, PERRL, conjunctivae normal, anicteric sclerae ENT: external ear and nose normal, oropharynx normal Neck: normal visual inspection, trachea midline, no thyromegaly Respiratory: normal respiratory effort, lungs clear to auscultation, no wheeze, rales, rhonchi. No accessory muscle use Cardiovascular: regular rate, rhythm, no murmur, normal peripheral pulses, no BLE edema. Vessels: no JVD Chest: normal inspection of chest Abdomen/GI: normal bowel sounds, soft, nontender, no hepatosplenomegaly Extremities/Musculoskeletal: no cyanosis or clubbing, extremities motor strengt h 5/ Neurologic: PERRL, EOMI, accommodation nl, no face palsy, no dysarthria, CN's II-XI intact bilaterally and moves all extremities Psychiatric: A+Ox3, euthymic affect Skin: no rashes, normal color, warm/dry Results & Data Results & Data ([facility]) Vital Signs (Past 12 Hours) Vital Signs Temp Pulse Resp BP BP Pulse Ox 03/10/21 07:35 36.7 C 60 16 168/96 H 97 03/09/21 22:49 36.7 C 67 14 137/69 96 Laboratory Results Short CBC 03/10/21 Range/Units 06:00 WBC 10.37 (4.8-10.8) K/uL Hgb 13.4 (12.0-16.0) g/dL Hct 39.6 (37-47) % Plt Count 180 (130-400) K/uL BMP 03/10/21 06:00 Sodium 141 Potassium 3.7 D Chloride 109 H Carbon Dioxide 27 BUN 9 Creatinine 0.80 Glucose 155 H Calcium 9.1
[2021-03-10] MEDS ORDERED: MAGNESIUM SULFATE / D5W 1 GM/100 ML BAG IV ONE ×2 (10:45→11:30)
[2021-03-10] MEDS: METOPROLOL SUCC 25MG EXT REL TAB PO SCH (21:20)
[2021-03-11] MEDS: LEVOTHYROXINE SODIUM 75 MCG TABLET PO SCH (05:51)
[2021-03-11 07:05] LABS: BUN Creatinine Ratio 11.9 (10-20); Calcium 9.4 mg/dl (8.5-10.1); Est GFR (African American) 71.2 ml/min; Est GFR (Non-African American) 61.4 ml/min; Magnesium 2.2 mg/dl (1.8-2.4); Potassium 3.8 mmol/L (3.5-5.1)
[2021-03-11] MEDS: amLODIPine BESYLATE 5 MG TAB PO SCH (07:48)
[2021-03-11] MEDS: hydroCHLOROthiazide 25 MG TAB PO SCH (07:48)
[2021-03-11] MEDS: HEPARIN SOD 5,000 UNIT/0.5 ML VIAL SQ SCH (07:49)
[2021-03-11] MEDS: INSULIN ASPART 100 UNITS/ML 3 ML PEN SC SCH ×2 (08:37→12:38)
--- NOTE | 2021-03-11 09:11 | Surgery Progress Note ---
Date of Service March 11, 2021 Assessment & Plan (1) Partial small bowel obstruction: doing better. nolberto diet. sbo appears resolved. ok for d/c. will sign off Admission and Anticipated Discharge Date Admission Date: March 07, 2021 Subjective pt seen. continues to feel well. wants to go home. nolberto diet. no n/v. Physical Exam Physical Exam: alert. nad abd: soft. nt. nd. Results & Data ([facility]) Vital Signs (Past 12 Hours) Vital Signs Temp Pulse Pulse Resp BP Pulse Ox 03/11/21 07:20 36.6 C 56 L 16 140/80 97 03/10/21 22:32 36.5 C 59 L 16 143/86 H 98 03/10/21 21:16 64 147/89 H PG Care Time/CCT Total # of Minutes Spent Total Time Spent with Patient: Total time spent is greater than 50% in coordination of care (as documented) at patient's floor/unit and/or counseling patient: Coding Level of Care Code 24563 Subseq Hosp Care Lvl 2 Diagnoses Partial small bowel obstruction K56.600
--- NOTE | 2021-03-11 11:46 | Hospitalist Progress Note ---
Date of Service March 11, 2021 Assessment & Plan (1) Partial small bowel obstruction: Small bowel obstruction -CT ABD:Findings are consistent with a small bowel obstruction. Although this could be related to adhesions, 2 discrete transition points are suggested and a closed loop/internal hernia type obstruction is not excluded. Surgical assessment is advised. No focally thick walled bowel loops are identified. There is no pneumatosis intestinalis, portal venous gas, or intraperitoneal free air. The appearance of the liver suggests early change of cirrhosis -Had BM -Received IV fluids -Appreciate Surgery Input -Tolerates regular diet (2) Hypomagnesemia: Replete electrolytes as needed Monitor (3) History of resection of small bowel: H/O Small bowel obstruction S/P Resection of small polyp from the intestine (4) Hypertension: On Metoprolol, HCTZ Patient prefers to stay on current regimen Monitor Advised to follow up with PCP for further management (5) DARIN on CPAP: CPAP HS (6) Hypothyroidism: Continue Levothyroxine DVT Px: Heparin SQ Code Status Full Code Admission and Anticipated Discharge Date Admission Date: March 07, 2021 Subjective Patient is seen and examined at bedside States feeling much better today Had bowel movement Tolerating diet Denies chest pain, shortness of breath, dizziness, nausea, abdominal pain Offers no other complaints Eager to get discharged Review of Systems Review of Systems: All systems reviewed & are unremarkable except as noted in HPI & below Physical Exam Physical Exam: Physical Exam: Vitals signs as noted above General Appearance:Obese, no apparent distress Head: normocephalic, Atraumatic Eyes: normal inspection, EOMI Neck: supple, Trachea midline Respiratory/Chest: Normal breath sounds, CTA Cardiovascular: S1, S2, No murmur Abdomen/GI:Soft, Non tender, + Bowel sounds Extremities/Musculoskeletal:normal inspection, no edema Neurologic/Psych:AAOX3, grossly no focal neurological deficits Skin: normal color, warm Results & Data Results & Data ([facility]) Vital Signs (Past 12 Hours) Vital Signs Temp Pulse Pulse Pulse Pulse Resp BP 03/11/21 11:22 36.6 C 64 73 64 71 16 134/64 03/11/21 07:20 36.6 C 56 L 16 BP Pulse Ox 03/11/21 11:22 140/80 97 03/11/21 07:20 140/80 97 Laboratory Results [facility] 03/11/21 06:09 Sodium 140 Potassium 3.8 Chloride 107 Carbon Dioxide 27 BUN 12 Creatinine 0.98 Glucose 173 H Calcium 9.4
--- NOTE | 2021-03-11 11:49 | Discharge Summary ---
Date of Service March 11, 2021 Admission HPI Per Admitting Provider CHIEF COMPLAINT: Abdominal pain. HISTORY OF PRESENT ILLNESS: A 65-year-old male with past medical history significant for type 2 diabetes, hypothyroidism, mild obstructive sleep apnea, hypertension, benign neoplasm of colon, morbid obesity, primary osteoarthritis of both knees, mild depression, SEVERINO inhibitor intolerance, presents with abdominal pain. The patient says in the morning since 10.30 she has abdominal pain, severe pain. She had 3 bowel movements in the morning. Since then she is not moving any bowels. Not passing any flatus. No nausea, no vomiting, no cough, no fever, no chills, no chest pain, no headache, no blurred vision, no earache, no runny nose, no sore throat. Normal bladder movements. Otherwise, ambulates okay. Lives with her . She had a bowel obstruction in July 2016, she had small polyps resected because of bowel obstruction. Admission Exam Per Admitting Provider PHYSICAL EXAMINATION: GENERAL: The patient is of moderate build, not in acute distress. VITAL SIGNS: Temperature 36.3, pulse 67, respiratory rate 24, blood pressure 155/77, oxygen 99% on room air. HEENT: Pupils equal, round, reactive to light. NECK: No JVD. No neck masses. CARDIOVASCULAR: S1, S2 heard, regular rate and rhythm, no murmur, no gallop. RESPIRATORY SYSTEM: Normal AP diameter. No accessory muscle use. No wheezing, no crackles. ABDOMEN: Soft, bowel sounds very sluggish, diffuse abdominal tenderness. Mild guarding, no rigidity, no rebound tenderness. CENTRAL NERVOUS SYSTEM: Cranial nerves II-XII grossly intact. Nonfocal. EXTREMITIES: No edema, no erythema. Principal Diagnosis Partial small bowel obstruction Hypomagnesemia Hypertension Discharge Data Allergies Allergy/AdvReac Type Severity Reaction Status Date / Time amoxicillin Allergy Unknown hives Unverified 03/06/21 23:03 clarithromycin Allergy Unknown swelling Unverified 03/06/21 23:03 Consultations 03/06/21 22:36 ED Decision to Admit Stat 03/07/21 08:00 Consult General Surgery Routine Procedures Performed CT ABD:Findings are consistent with a small bowel obstruction. Although this could be related to adhesions, 2 discrete transition points are suggested and a closed loop/internal hernia type obstruction is not excluded. Surgical assessment is advised. No focally thick walled bowel loops are identified. There is no pneumatosis intestinalis, portal venous gas, or intraperitoneal free air. The appearance of the liver suggests early change of cirrhosis Ordered Studies 03/06/21 20:57 CT abd pelvis IV con only Urgent Hospital Course (1) Partial small bowel obstruction: Small bowel obstruction -CT ABD:Findings are consistent with a small bowel obstruction. Although this could be related to adhesions, 2 discrete transition points are suggested and a closed loop/internal hernia type obstruction is not excluded. Surgical assessment is advised. No focally thick walled bowel loops are identified. There is no pneumatosis intestinalis, portal venous gas, or intraperitoneal free air. The appearance of the liver suggests early change of cirrhosis -Had BM -Received IV fluids -Appreciate Surgery Input -Tolerates regular diet (2) Hypomagnesemia: Replete electrolytes as needed Monitor (3) History of resection of small bowel: H/O Small bowel obstruction S/P Resection of small polyp from the intestine (4) Hypertension: On Metoprolol, HCTZ Patient prefers to stay on current regimen Monitor Advised to follow up with PCP for further management (5) DARIN on CPAP: CPAP HS (6) Hypothyroidism: Continue Levothyroxine DVT Px: Heparin SQ Code Status Full Code Total Time Total Time Spent Total Time Spent (In Minutes): 42 minutes Total Time Includes: Examination of the Patient, Discharge Planning, Medication Reconciliation, Communication With Other Providers and Other Discharge Plan Discharge Items Patient Disposition: Home - Self-Care Reason For Visit: ABDOMINAL PAIN Discharge Diagnosis: Partial small bowel obstruction Hypomagnesemia Hypertension Activity: Per Instructions section Exercise/Sports: Gradually increase as tolerated Non-emergency contact: Primary Care Provider Call non-emergency contact if: you have any medication questions, your symptoms worsen, your pain is not controlled, your pain is concerning for you and you have a fever Follow-up/Referrals: Elkin Hermosillo DO [Primary Care Provider] - (Date & Time 03/15/2021 12:00 PM Provider Elkin Hermosillo DO Department [facility] ) Diet: Carb Consistent or DM2 and Low Fiber Addtl Attending Provider Instructions: Follow-up with your primary care physician Dr. Hermosillo on 03/15/2021 12:00 PM Seek immediate medical attention if your symptoms reoccur or worsen Please take all medications as instructed on discharge list below. Please call if you have any questions or problems. You can reach a [facility] hospitalist on duty at [facility] 24 hours a day by calling [phone] Pending Studies at Discharge: No Stand-Alone Forms: [facility], Smoking Cessation Medications and DC Order Prescriptions: Continued levothyroxine [Euthyrox] 75 mcg tablet 75 mcg PO DAILY RF: 0 hydrochlorothiazide 25 mg tablet 25 mg PO DAILY RF: 0 metoprolol succinate 25 mg tablet extended release 24 hr 25 mg PO QPM RF: 0 metformin 500 mg tablet extended release 24 hr 1,000 mg PO BID RF: 0 Discharge Orders: Discharge Order (Routine); Ordered 03/11/21 Ordered By: Rhys Pate Admission Data Admit Date/Time: 03/07/21 00:30 Attending Provider: Rhys Pate Admit Provider: Morgan Buck Primary Care Provider: Elkin Hermosillo Other Providers: Ralph Sultana ; Josefina hSarma ; Chrissy Dubose ; Edin Hernández ; Ajith Genao ; Erma Covington ; Flor Xie ; Walt Parker Jr ; Ryder Bryant ; Doug Dawson ; Concha Cruz ; Morgan Buck Other Interventions: Discharge Summary Assessment (RN) Last Done: 03/11/21 11:22
== END 2021-03-11 13:00 | disposition home or self-care (01) ==
LOC: ED 20:36 → SUATTDRO 03-07 00:30 → 3E 03-07 00:30